=== PATIENT | female | born 1940 ===

== ENCOUNTER 2021-07-14 09:26 | Inpatient (IN) | payer MEDICARE ==
[2021-07-13 12:32] LABS: ALANINE AMINOTRANSFERASE 24 U/L (12-78); ALBUMIN 3.5 g/dL (3.4-5.0); CALCIUM 9.4 mg/dL (8.5-10.1); CREATININE 0.99 mg/dL (0.55-1.02)
[2021-07-13 12:35] LABS: ALKALINE PHOSPHATASE 75 U/L (45-117); BILIRUBIN,TOTAL 0.5 mg/dL (0.2-1.0); TOTAL PROTEIN 7.2 g/dL (6.4-8.2)
[2021-07-13 12:37] LABS: BASOPHILS % (AUTO) 1 % (0-1); EOSINOPHILS % (AUTO) 4 % (1-7); LYMPHOCYTES % (AUTO) 27 % (22-44); MEAN CORPUSCULAR HEMOGLOBIN 33.1 pg (27.0-34.8); MEAN CORPUSCULAR HGB CONC 33.1 g/dL (32.4-35.8); MEAN PLATELET VOLUME 7.9 fL (7.4-10.4); MONOCYTES % (AUTO) 9 % (2-9); NEUTROPHILS % (AUTO) 60 % (42-75); PLATELET COUNT 263 x10^3/uL (130-400); RED BLOOD COUNT 4.34 x10^6/uL (3.82-5.3); RED CELL DISTRIBUTION WIDTH 14.2 % (9.6-15.2)
[2021-07-13 12:43] LABS: ANION GAP 6 mmol/L (5-15); CHLORIDE 109 mmol/L (98-107)
[~2021-07-14] VITALS: Ht 167.6 cm; Wt 58.3 kg
[~2021-07-14 09:26] MED LIST: ATOR40TA78 PO; LEVE500T53 PO; RIVA20TA PO
[2021-07-14] MEDS ORDERED: CHLORHEXIDINE 15 ML UDC ONE (10:14)
[2021-07-14] MEDS ORDERED: LACTATED RINGERS 1,000 ML IV SCH (10:30)
[2021-07-14] MEDS ORDERED: CHLORHEXIDINE 15 ML UDC PO ONE (10:30)
[2021-07-14] MEDS ORDERED: MIDAZOLAM 1 MG/ML, 2ML ONE (11:26)
[2021-07-14] MEDS ORDERED: FENTANYL PF 250 MCG/5ML ONE (11:26)
[2021-07-14] MEDS ORDERED: BUPIVACAINE/PF 0.5% ONE (12:41)
[2021-07-14] MEDS ORDERED: PROTAMINE SULFATE 10 MG/ML, 5ML ONE (12:42)
[2021-07-14] MEDS ORDERED: EPINEPHRINE 1 MG/ML, 1ML ONE (12:42)
[2021-07-14] MEDS ORDERED: THROMBIN 20,000 UNIT VIAL TP ONE (12:42)
[2021-07-14] MEDS ORDERED: HEPARIN 1,000 UNITS/ML, 10ML ONE (12:42)
[2021-07-14] MEDS ORDERED: PROPOFOL 10 MG/ML, 20ML ONE (13:16)
[2021-07-14] MEDS ORDERED: ROCURONIUM 10 MG/ML,10ML ONE (13:16)
[2021-07-14] MEDS ORDERED: DEXAMETHASONE 4 MG/ML, 1ML ONE (13:16)
[2021-07-14] MEDS ORDERED: SUGAMMADEX 200 MG/2 ML IVPush ONE (13:16)
[2021-07-14] MEDS ORDERED: ONDANSETRON 2MG/ML, 2ML ONE (13:16)
[2021-07-14] MEDS ORDERED: CEFAZOLIN 1,000 MG ONE (13:16)
[2021-07-14] MEDS ORDERED: HEPARIN 1,000 UNITS/ML, 10ML IV ONE (13:34)
[2021-07-14] MEDS ORDERED: HYDROmorphone 1 MG/ML, 1ML INJ IVPush PRN (14:00)
[2021-07-14] MEDS ORDERED: OXYcodone 5 MG/5 ML ORAL.SOL UDC PO PRN (14:00)
[2021-07-14] MEDS ORDERED: METOPROLOL 1 MG/ML, 5ML IV PRN (14:00)
[2021-07-14] MEDS ORDERED: MEPERIDINE/PF 25MG/0.5ML IVPush PRN (14:00)
[2021-07-14] MEDS ORDERED: DIAZEPAM 5 MG/ML, 2ML IVPush PRN (14:00)
[2021-07-14] MEDS ORDERED: ONDANSETRON 2MG/ML, 2ML IVPush PRN ×2 (14:00→16:30)
[2021-07-14] MEDS ORDERED: ACETAMINOPHEN 325 MG TABLET PO PRN (14:00)
[2021-07-14] MEDS ORDERED: VISIPAQUE 270 MG/ML, 50ML BOTTLE ONE (14:42)
[2021-07-14] MEDS ORDERED: ACETAMINOPHEN 650 MG/20.3 ML UDC PO PRN (16:30)
[2021-07-14] MEDS ORDERED: HYDROcodone/APAP 5/325 TABLET PO PRN (16:30)
[2021-07-14] MEDS ORDERED: FENTANYL PF 100 MCG/2ML ONE (17:01)
[2021-07-14] MEDS ORDERED: OXYcodone 5 MG/5 ML ORAL.SOL UDC ONE (17:01)
[2021-07-14] MEDS ORDERED: ACETAMINOPHEN 650 MG/20.3 ML UDC ONE (17:02)
[2021-07-14] MEDS: FENTANYL PF 100 MCG/2ML IV PRN ×2 (17:04→17:21)
[2021-07-14] MEDS: D5%-0.45% NACL 1,000 ML IV SCH (19:26)
[2021-07-14 19:41] VITALS: BP 100/72
[2021-07-14] MEDS: LEVETIRACETAM 500 MG TABLET PO SCH (20:06)
[2021-07-14] MEDS ORDERED: ATORVASTATIN 40 MG TABLET PO SCH (21:00)
[2021-07-14] MEDS: CEFAZOLIN PMX 1GM/50ML 50 ML IVPB SCH (21:35)
[2021-07-14 23:51] VITALS: BP 135/78
[2021-07-15 02:51] VITALS: BP 113/84
[2021-07-15] MEDS: CEFAZOLIN PMX 1GM/50ML 50 ML IVPB SCH (05:22)
[2021-07-15 06:20] LABS: BASOPHILS % (AUTO) 1 % (0-1); EOSINOPHILS % (AUTO) 0 % (1-7); LYMPHOCYTES % (AUTO) 10 % (22-44); MEAN CORPUSCULAR HEMOGLOBIN 33.8 pg (27.0-34.8); MEAN CORPUSCULAR HGB CONC 33.9 g/dL (32.4-35.8); MONOCYTES % (AUTO) 7 % (2-9); NEUTROPHILS % (AUTO) 82 % (42-75); PLATELET COUNT 193 x10^3/uL (130-400); RED CELL DISTRIBUTION WIDTH 13.9 % (9.6-15.2)
[2021-07-15 06:33] LABS: ALBUMIN 2.8 g/dL (3.4-5.0); CHLORIDE 108 mmol/L (98-107)
[2021-07-15 06:35] LABS: ANION GAP 4 mmol/L (5-15)
[2021-07-15 07:30] VITALS: BP 127/93
[2021-07-15] MEDS ORDERED: RIVAROXABAN 20 MG TABLET PO SCH (09:00)
[2021-07-15] MEDS: LEVETIRACETAM 500 MG TABLET PO SCH (09:43)
[2021-07-15] MEDS: D5%-0.45% NACL 1,000 ML IV SCH (12:30)
[2021-07-15 13:49] VITALS: BP 108/72
[2021-07-15] MEDS ORDERED: HYDR-2214 PO (15:03)
== END 2021-07-15 17:00 | disposition home or self-care (01) | DRG 254 ==
LOC: ORIP 09:26 → 4NE 18:02
PROVIDERS: ADMIT Surgery; ATTEND Surgery
PROC: 041L0JJ Bypass Left Femoral Artery to Left Femoral Artery with Synthetic Substitute, Open Approach (ICD-10-PCS; 2021-07-14)
PROC: 04QL0ZZ Repair Left Femoral Artery, Open Approach (ICD-10-PCS; 2021-07-14)
PROC: 04CL0ZZ Extirpation of Matter from Left Femoral Artery, Open Approach (ICD-10-PCS; principal; 2021-07-14 12:00)
DX: I72.4 Aneurysm of artery of lower extremity (principal)
CPT/HCPCS: 36415; 71046; 75710; 80048; 80053; 82040; 85025; 86850; 86900; 88304; 93005; C1768; G0378; J0171; J0690; J1100; J1644; J2250; J2405; J2704; J2720; J3010; Q9966; J7120